=== PATIENT | female | born 1975 | race Caucasian/White ===

== ENCOUNTER 2020-03-12 16:38 | Outpatient (CLI) | payer BC, SELFPAY ==
--- NOTE | ~2020-03-12 | MM_ITS ---
EXAMINATION: MM screening brianda BI w jaiden HISTORY: Screening mammogram TECHNIQUE: Craniocaudal and mediolateral oblique 3-D tomosynthesis images were obtained and synthetic 2-D images were generated. CAD analysis was submitted and interpreted. COMPARISON: No prior mammogram is available for comparison at this institution. BREAST PARENCHYMAL COMPOSITION: The breasts are heterogeneously dense, which may obscure small masses . FINDINGS: At 8 mm circumscribed possible mass is suggested at mid depth in the mid to lower outer rig ht breast (craniocaudal Tomosynthesis image 25/85). A 6 mm circumscribed possible mass is suggested anteriorly in the inner aspect of the upper outer juanpablo drant of the left breast (craniocaudal Tomosynthesis image 56/81). Bilateral diagnostic mammography and bilateral breast ultrasound examination are recommended. IMPRESSION: 1. Possible bilateral breast masses 2. Bilateral diagnostic mammogram and bilateral breast ultrasound examination are recommended. BI-RADS Category 0: Incomplete: Needs additional imaging evaluation. Reviewed, dictated and finalized at location A. IMPRESSION: 1. Possible bilateral breast masses 2. Bilateral diagnostic mammogram and bilateral breast ultrasound examination a re recommended. BI-RADS Category 0: Incomplete: Needs additional imaging evaluation.
== END 2020-03-12 16:39 | disposition home or self-care (01) ==
PROVIDERS: PCP Family Medicine; Visit Provider Obstetrics & Gynecology
DX: Z12.31 Encounter for screening mammogram for malignant neoplasm of breast (principal); R92.8 Other abnormal and inconclusive findings on diagnostic imaging of breast
CPT/HCPCS: 77063; 77067

== ENCOUNTER 2020-03-14 12:31 | Outpatient (CLI) | payer BC, SELFPAY ==
--- NOTE | ~2020-03-14 | MMUS_ITS ---
EXAMINATION: MM diagnostic mammo BI, US breast BI complete HISTORY: Possible bilateral mammographic masses on screening mammogram of 03/12/2020 TECHNIQUE: Additional 3-D tomosynthesis images of both breasts were performed and synthetic 2-D image s were generated. CAD analysis was submitted and interpreted. High resolution complete bilateral elise st ultrasound was performed. COMPARISON: 03/12/2020 bilateral digital screening mammogram FINDINGS: MAMMOGRAPHIC FINDINGS: At least 12 mm circumscribed mass is suggested posteriorly in the mid outer right breast. Heterogeneous dense stroma may obscure small masses on either side. ULTRASOUND: Right breast: 9:00 7 cm from nipple: There is a circumscribed sonolucency measuring 7.7 x 5.4 x 10 mm, with through transmission, consistent with simple cyst Left breast: 12:00 3 cm from nipple: Parallel circumscribed hypoechoic 6.1 x 7.0 x 3.2 mm lesion without internal vascularity or posterior shadowing 2:00 4 cm from nipple: Parallel circumscribed 6.1 x 2.9 x 6.1 mm sonolucency with through transmissio n, likely a small cyst or other benign finding IMPRESSION: 1. No mammographic evidence of malignancy of either breast 2. Routine annual mammographic screening follow-up is recommended. BI-RADS Category 2: Benign finding(s). Reviewed, dictated and finalized at location A. IMPRESSION: 1. No mammographic evidence of malignancy of either breast 2. Routine annual mammographic screening follow-up is recommended. BI-RADS Category 2: Benign finding(s).
== END 2020-03-14 12:32 | disposition home or self-care (01) ==
PROVIDERS: PCP Family Medicine; Visit Provider Obstetrics & Gynecology
DX: R92.8 Other abnormal and inconclusive findings on diagnostic imaging of breast (principal)
CPT/HCPCS: 76641; 77066

== ENCOUNTER 2021-01-07 09:09 | Emergency (ER) | payer BC, SELFPAY ==
--- NOTE | ~2021-01-07 | XR_ITS ---
EXAMINATION: XR foot LT min 3V DATE: 01/07/2021 10:19 INDICATION: Trauma to the left great toe TECHNIQUE: Dorsoplantar, two oblique and lateral views of the left foot were obtained. COMPARISON: None. FINDINGS: Alignment is normal. No fracture. Minimal polyarticular osteoarthritis at the first metatarsophalange al and a few interphalangeal joints. Soft tissue swelling about the distal phalanx of the great toe. IMPRESSION: 1. No acute osseous abnormality. Reviewed, dictated and finalized at location A.
[2021-01-07 09:31] VITALS: BP 156/104; PULSE 77; RESP 16; TEMP 37.1; O2SAT 99
--- NOTE | 2021-01-07 10:02 | ED.FALL ---
HPI - Fall General Chief Complaint: Extremity Injury, Lower Stated Complaint: left 1st digit toe/right arm pain Time Seen by Provider: 01/07/21 09:58 Source: patient and RN notes reviewed Mode of arrival: ambulatory Limitations: no limitations History of Present Illness HPI Narrative: 45-year-old female presents concern for 2 injuries that occurred on the same day. Reports 4 days ago a piece of wood fell on the first digit of her left foot causing pain, swelling, bruising. Reports she wore flip-flops later that day because of the pain in her toe and subsequently tripped falling into a pile of rubble onto her right upper arm. Reports using ice, Aleve. Reports shoulder pain is improved with Aleve, however after a long day of working the shoulder/upper arm becomes more painful with abduction. 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 MD complaint: fall Related Data Home Medications Medication Instructions Recorded Confirmed No Home Medications 01/07/21 01/07/21 Allergies Allergy/AdvReac Type Severity Reaction Status Date / Time amoxicillin Allergy Unknown Verified 01/07/21 09:57 azithromycin Allergy Unknown Verified 01/07/21 09:57 Cephalosporins Allergy Unknown Verified 01/07/21 09:57 codeine Allergy Unknown Verified 01/07/21 09:57 egg Allergy Unknown Verified 01/07/21 09:57 iodine Allergy Unknown Verified 01/07/21 09:57 latex Allergy Unknown Verified 01/07/21 09:57 Macrolide Antibiotics Allergy Unknown Verified 01/07/21 09:57 Penicillins Allergy Unknown Verified 01/07/21 09:57 shellfish derived Allergy Unknown Verified 01/07/21 09:57 Review of Systems Review of Systems: Narrative: CONSTITUTIONAL: Denies malaise, chills, sweats, or fever. CARDIOVASCULAR: Denies chest pain, palpitations, or edema. RESPIRATORY: Denies cough or dyspnea. SKIN: Denies abrasions, lacerations. Reports first digit of left foot toenail is purple MUSCULOSKELETAL: Reports pain to the first digit of left foot, upper right arm. Denies decreased strength, range of motion, sensation. NEUROLOGIC: Denies numbness, weakness, or headache. PSYCHIATRIC: Denies anxiety or depression. All systems reviewed & are unremarkable except as noted in HPI and below PMFSH Family History Family History (Updated 05/29/11 @ 12:41 by DOCTOR UNKNOWN) Other Family history of coronary artery disease Hypertension Social History Social History Alcohol intake: never Gender identity (if verbalized by the patient): Female Comments At time of signature, agree with nursing past medical, surgical, social and family history. There is no relevant family history pertinent to the presenting complaint Exam Narrative: Exam Narrative: GENERAL: Well-appearing, well-nourished, and in no acute distress. HEAD: Normocephalic, atraumatic. EYES: PERRLA, conjunctivae clear NECK: Supple. CHEST: Speaks in full sentences. No respiratory distress. HEART: Regular rate and rhythm. Normal and equal peripheral pulses. EXTREMITIES: First digit of left foot has normal strength and sensation, normal range of motion. Mild edema, ecchymosis. 5/5 strength with digit flexion and extension. Normal sensation with sensitivity to light touch and pain. General digit tenderness. No open wounds, no skin tenting, no devitalized tissue or atrophy, no trophic changes, no obvious deformity, alignment normal, nearby joints and structures intact. Distal pulses palpable and equal bilaterally, skin warm, dry, pink. Capillary refill less than 3 seconds. Right upper extremity has normal strength and sensation, normal range of motion. No edema or ecchymosis. 5/5 strength with shoulder abduction, abduction. Normal sensation with sensitivity to light touch and pain. No point tenderness. No open wounds, no skin tenting, no devitalized tissue or atrophy, no trophic changes, no obvious deformity, alignment normal, nearby joints and structu
== END 2021-01-07 10:45 | disposition home or self-care (01) ==
PROVIDERS: Emergency Provider Nurse Practitioner; PCP General Practice
DX: S90.112A Contusion of left great toe without damage to nail, initial encounter (principal); W20.8XXA Other cause of strike by thrown, projected or falling object, initial encounter; M79.601 Pain in right arm; Z86.16 Personal history of COVID-19
CPT/HCPCS: 11740; 73630; 99213; G0463

== ENCOUNTER 2021-06-13 10:48 | Day surgery (SDC) | payer BC, SELFPAY ==
[2021-06-13 10:24] VITALS: BMI 23.6
--- NOTE | 2021-06-13 11:06 | PM.IMHP ---
H&P: HPI History of Present Illness Date/Time: 06/13/21 11:06 45-year-old female admitted for hysteroscopy dilatation and curettage secondary to heavy bleeding. She underwent ultrasound and there was a thickened area in the fundus with I suspect is probably a polyp. She was scheduled for a later time procedure however she has been bleeding through a pad an hour. Risks and benefits of this procedure reviewed including but not exclusive of , aspiration pneumonia, bleeding, transfusion, perforation injury to bowel, bladder, ureter, or other internal organs with need for open laparotomy. She received the ACOG handout entitled hysteroscopy as well as dilatation and curettage respectively. She had all questions answered. She asked to proceed Chief Complaint: Vaginal bleeding Review of Systems Review of Systems: All systems reviewed & are unremarkable except as noted in HPI and below PMFSH Family History Family History Other Family history of coronary artery disease Hypertension Social History Social History Years smoked: 20 Smoking status: Current some day smoker Tobacco type: cigarettes Alcohol intake: current Alcohol use details: RARE Substance use: never Substance use type: does not use Living arrangements: with family Gender identity (if verbalized by the patient): Female Spiritual care concerns: No Meds Home Medications and Allergies Home Medications Medication Instructions Recorded Confirmed Type albuterol 90 mcg INHALATION Q6H PRN 06/13/21 06/13/21 History amlodipine 5 mg PO DAILY 06/13/21 06/13/21 History bupropion HCl [Wellbutrin XL] 150 mg PO DAILY 06/13/21 06/13/21 History cetirizine 10 mg PO BID 06/13/21 06/13/21 History ferrous sulfate [Iron (ferrous 325 mg PO DAILY 06/13/21 06/13/21 History sulfate)] Allergies Allergy/AdvReac Type Severity Reaction Status Date / Time egg Allergy Severe Anaphylaxis Verified 06/13/21 10:21 iodine Allergy Severe Rash Verified 06/13/21 10:21 amoxicillin Allergy Intermediate Rash Verified 06/13/21 10:21 Cephalosporins Allergy Intermediate Rash Verified 06/13/21 10:21 latex Allergy Intermediate Swelling Verified 06/13/21 10:21 shellfish derived Allergy Intermediate Rash Verified 06/13/21 10:21 Penicillins Allergy Unknown Rash Verified 06/13/21 10:21 codeine AdvReac Mild Nausea and Verified 06/13/21 10:21 Vomiting Exam Const: General: no acute distress Eyes: General: appearance normal, both eyes and all related structures Neck: Neck: supple and no JVD Thyroid: thyroid normal Resp: Effort & Inspection: normal respiratory effort Auscultation: clear to auscultation bilaterally Cardio: Rate: regular rate Rhythm: regular rhythm GI: Inspection: non-distended GI Palp: Yes Soft to palpation, No Tenderness to palpation present (GI) and No Guarding due to palpation present (GI) Auscultation: normal bowel sounds : Speculum Exam - Vagina: normal appearance of the vagina and vaginal bleeding Speculum Exam - Cervix: normal appearance of the cervix and Cervical os closed Bimanual exam- vagina & uterus: enlarged Bimanual Exam- Adnexa, other: normal adnexae Skin: General skin exam: no rashes or lesions noted Extrem: General: normal to inspection and no edema Psych: Mental Status: mental status grossly normal Affect: normal affect Assessment and Plan Additional Plan Impression: Bleeding Plan: Hysteroscopy/dilatation and curettage
--- NOTE | 2021-06-13 11:07 | WPDHPUPDATE1 ---
History and Physical Update Update Date/Time: 06/13/21 11:07 History and Physical has been reviewed, including an updated exam of the patient. There are NO changes in the patient's condition. Risks, benefits, and alternatives have been discussed and questions answered. Patient agrees to proceed with procedure.
[2021-06-13 13:33] VITALS: BP 145/88; PULSE 92; RESP 16; TEMP 37.1; O2SAT 99; BMI 24.5
[2021-06-13] MEDS: ACETAMINOPHEN 500 MG TABLET 1000 MG PO (13:39)
--- NOTE | 2021-06-13 13:42 | WPDANESEPPF ---
Anes - Initial Pre Proc Eval Procedure: Operation Date: 06/13/21 16:30 Proposed Procedures p Hysteroscopy, Dilation and Curettage - Joao Duong MD Date/Time: 06/13/21 13:42 Surgeon: Joao Duong MD Pre Op Diagnosis: irregular bleeding Patient Data Age: 45 Gender: F Height: 1.78 m Weight: 77.5 kg Last Vital Signs Temp 37.1 C 06/13/21 13:33 Pulse 92 06/13/21 13:33 Resp 16 06/13/21 13:33 BP 145/88 H 06/13/21 13:33 Pulse Ox 99 06/13/21 13:33 Allergies Allergy/AdvReac Type Severity Reaction Status Date / Time egg Allergy Severe Anaphylaxis Verified 06/13/21 13:21 iodine Allergy Severe Rash Verified 06/13/21 13:21 amoxicillin Allergy Intermediate Rash Verified 06/13/21 13:21 Cephalosporins Allergy Intermediate Rash Verified 06/13/21 13:21 latex Allergy Intermediate Swelling Verified 06/13/21 13:21 shellfish derived Allergy Intermediate Rash Verified 06/13/21 13:21 Penicillins Allergy Unknown Rash Verified 06/13/21 13:21 codeine AdvReac Mild Nausea and Verified 06/13/21 13:21 Vomiting Home Medications Medication Instructions Recorded Confirmed Type albuterol 90 mcg INHALATION Q6H PRN 06/13/21 06/13/21 History amlodipine 5 mg PO DAILY 06/13/21 06/13/21 History bupropion HCl [Wellbutrin XL] 150 mg PO DAILY 06/13/21 06/13/21 History cetirizine 10 mg PO BID 06/13/21 06/13/21 History ferrous sulfate [Iron (ferrous 325 mg PO DAILY 06/13/21 06/13/21 History sulfate)] hydrocodone-acetaminophen 1 tablet PO Q4H PRN #14 tablet 06/13/21 Rx Patient hx anesthesia problems: none Family hx anesthesia problems: none Results Review: All pre-operative results and documents have been reviewed as part of the pre-operative evaluation. [facility]LY [facility] Past Medical History Medical History Antiphospholipid antibody syndrome Anxiety Asthma Hx of migraines Hypertension Family History Family History Other Family history of coronary artery disease Hypertension Social History Social History Years smoked: 20 Smoking status: Current some day smoker Tobacco type: cigarettes Alcohol intake: current Alcohol use details: RARE Substance use: never Substance use type: does not use Living arrangements: with family Gender identity (if verbalized by the patient): Female Spiritual care concerns: No Anes - Eval Final PreProcedure Day of Procedure 06/13/21 13:42 Patient weight: normal Heart: regular rate and rhythm Lungs: clear to auscultation Airway: Mallampati scale class II Neurological: alert and oriented Last oral intake: >/= 8 hours ASA classification: III Emergent: no Anesthetic plan: proceed Anesthesia type and monitoring: general GIVS and standard monitoring Results Review: All pre-operative results and documents have been reviewed as part of the pre-operative evaluation. Informed Consent: The patient's anesthetic plan and its attendant risks and benefits were discussed with the patient/family/POA. Questions were solicited and answers provided to the satisfaction of the patient/family/POA.
[2021-06-13] MEDS: LACTATED RINGERS 1,000 ML 30 ML IV CONT ×2 (13:48→15:34)
[2021-06-13 13:55] LABS: Hematocrit 29.3 % (37.0-47.0); Hemoglobin 10.2 g/dL (12.0-15.0)
[2021-06-13] MEDS: KETOROLAC 30 MG/ML VIAL (*BKC) IV PUSH (15:17)
--- NOTE | 2021-06-13 15:32 | W.PM.PROC2 ---
Procedure Note - Detailed Date of Procedure 06/13/21 Pre-op Diagnosis irregular bleeding Post-op Diagnosis other (polyp) Procedure Performed Hysteroscopy/polypectomy/dilatation and curettage Surgeon Joao Duong MD Anesthesia MAC and local Indications This is a 45-year-old female with heavy bleeding Findings Several small polyps were seen. Several clots were seen. Each ostia was within normal limits Description of Procedure The patient was prepped and draped in the normal sterile fashion and placed in the dorsal lithotomy position. Under excellent IV be sedation weighted speculum placed in posterior fornix of vagina. The anterior lip of the cervix grasped with a single-tooth tenaculum and 2.5cc of 1% xylocaine anesthesia placed at 2, 4, 8, 10:00 a.m. of the cervix. Uterus sounded to 10cm. Serial dilatation with fragmented dilators performed followed by passage of the 5mm visualizing hysteroscope using normal saline as visualizing medium. S several small polyps were seen and these were individually removed with the polyp forceps piecemeal. The uterus was then scraped over the entire 360? until a good grating sound was heard. When no further tissue could be removed the instruments removed. All sponge, needle, instrument counts were correct. There were no immediate complications Estimated Blood Loss 25 Drains No Packing No Pathology yes Complications No immediate complications Condition stable Disposition PACU
[2021-06-13 15:34] VITALS: BP 127/79; PULSE 84; RESP 16; O2SAT 100
[2021-06-13 16:00] VITALS: BP 140/71; PULSE 88; RESP 16; O2SAT 100
[2021-06-13 16:25] VITALS: BP 137/86; PULSE 70; RESP 14
== END 2021-06-13 16:36 | disposition home or self-care (01) ==
PROVIDERS: Visit Provider Obstetrics & Gynecology
PROC: 0U5B8ZZ Destruction of Endometrium, Via Natural or Artificial Opening Endoscopic (ICD-10-PCS; CPT 58563; principal; 2021-06-13 16:30)
DX: N92.6 Irregular menstruation, unspecified (principal); N84.1 Polyp of cervix uteri; F17.210 Nicotine dependence, cigarettes, uncomplicated; Z79.51 Long term (current) use of inhaled steroids
CPT/HCPCS: 58558; 36415; 85014; 85018; 88305; A9270; J1885; J2250; J2704; J3010; J7120

== ENCOUNTER 2021-06-26 15:44 | Outpatient (CLI) | payer BC, SELFPAY ==
--- NOTE | ~2021-06-26 | MM_ITS ---
EXAMINATION: MM screening brianda BI w jaiden HISTORY: Screening mammogram, family history of breast cancer in her mother. TECHNIQUE: Craniocaudal and mediolateral oblique 3-D tomosynthesis images were obtained and synthetic 2-D images were generated. CAD analysis was submitted and interpreted. COMPARISON: 03/14/2020, 03/12/2020 BREAST PARENCHYMAL COMPOSITION: The breasts are heterogeneously dense, which may obscure small masses . FINDINGS: There is no evidence of suspicious mass, calcification, or architectural distortion to sugg est malignancy in either breast. There has been no suspicious interval change. IMPRESSION: 1. No mammographic evidence of malignancy. 2. Recommend routine screening mammography in one year. BI-RADS Category 1: Negative Reviewed, dictated and finalized at location A.
== END 2021-06-26 15:45 | disposition home or self-care (01) ==
LOC: ANHIMG 15:45
PROVIDERS: Visit Provider Obstetrics & Gynecology
DX: Z12.31 Encounter for screening mammogram for malignant neoplasm of breast (principal)
CPT/HCPCS: 77063; 77067

== ENCOUNTER 2021-11-17 09:37 | Outpatient (CLI) | payer BC, SELFPAY ==
--- NOTE | 2021-11-17 09:45 | ECG_ITS ---
Measurements Intervals [place] Rate: 91 P: 77 SC: 153 QRS: 64 QRSD: 96 T: 45 QT: 312 QTc: 386 Interpretive Statements SINUS RHYTHM POSSIBLE LEFT ATRIAL ENLARGEMENT INCOMPLETE RIGHT BUNDLE BRANCH BLOCK BASELINE ARTIFACT- I, II, III, AVR, AVL, AVF BORDERLINE ECG Electronically Signed On 11-17-2021 12:12:28 NURSING OFFICER by Jalen Pablo D.O.
[2021-11-17 10:48] LABS: Basophils Percent Auto 0.3 % (0.2-1.2); Eosinophils Absolute Auto 0.1 K/mm3 (0-0.3); Eosinophils Percent Auto 1.6 % (0-4.4); Hematocrit 30.8 % (37.0-47.0); Hemoglobin 10.6 g/dL (12.0-15.0); Immature Granulocyte Absolute 0.02 K/mm3 (0.00-0.031); Immature Granulocyte Percent A 0.2 % (0-0.5); Lymphocytes Absolute Auto 2.36 K/mm3 (0.9-3.2); Lymphocytes Percent Auto 26.2 % (18.3-44.2); Mean Corpuscular HGB Conc 34.4 g/dl (32-36); Mean Corpuscular Hemoglobin 31.9 pg (26-34); Mean Corpuscular Volume 92.8 fl (80-100); Monocytes Absolute Auto 0.5 K/mm3 (0.1-0.6); Monocytes Percent Auto 5.9 % (2.6-8.5); Neutrophils Absolute Auto 5.9 K/mm3 (1.3-6.7); Neutrophils Percent Auto 65.8 % (45.5-73.1); Platelet Count Result 330 k/mm3 (150-375); Red Blood Count 3.32 M/mm3 (4.2-5.4); Red Cell Distribution Width 14.5 % (11.5-14.5)
== END 2021-11-17 09:38 | disposition home or self-care (01) ==
LOC: ANHSURGERY 09:42
PROVIDERS: PCP Family Medicine; Visit Provider Obstetrics & Gynecology
DX: R10.2 Pelvic and perineal pain (principal); I10 Essential (primary) hypertension; Z01.818 Encounter for other preprocedural examination; I45.10 Unspecified right bundle-branch block
CPT/HCPCS: 36415; 85025; 86850; 86900; 86901; 93005

== ENCOUNTER 2021-11-21 02:52 | Day surgery (SDC) | payer BC, SELFPAY ==
[2021-11-14 14:33] VITALS: BMI 25.1
--- NOTE | 2021-11-14 14:46 | PC.NURSE ---
Report to the Outpatient Waiting Room, entrance under the green pavilion located off [facility], at time 7:30 on date 11/21/21. OR Time: 9:30. - You and your visitor will be asked a series of questions to screen for COVID 19 for your protection. - A mask is required within the hospital. One visitor will be allowed to accompany the patient into the hospital. Patients visitor will be instructed to remain with patient at all times or leave the building. We will allow the visitor to come back to the postoperative area when patient is ready. Preoperative COVID Testing Requirements: No COVID Test needed if: (proof is required; if not received patient will have Rapid Test prior to entry) - Patient has received COVID Vaccine at least 14 days prior to procedure date or - Patient has positive COVID test result within last 90 days of surgery date. COVID Test needed if above criteria is not met Patients may have clear liquids (water, carbonated beverages, clear teas, apple juice) until 3 hours prior to surgery (6:30) with a maximum of 20 ounces. - No food from midnight until time of surgery Take the following medications with a SIP of water the morning of surgery: AMLODIPINE, WELLBUTRIN, INHALER (IF NEEDED) Medications to discontinue per physician: VITAMINS/SUPPLEMENTS Date to take last dose: 11/17/21 Please no make-up, nail surinamese, hairspray, perfume, deodorant, or body powder the day of surgery. No jewelry (including any body piercings) or valuables the day of surgery, leave them at home. Please take a shower or bath the night before, or the morning of, surgery with an antibacterial soap. Wear comfortable, loose fitting clothing. - Jewelry must be removed prior to entering the operating room. Rings and piercings that are not removed may be cut off. - The hospital will not accept responsibility for valuables. - Please leave all valuables, including medications, at home the day of surgery. If you are going home after surgery, a licensed medical van driver must drive you home. - NO public transportation without another adult. - We recommend that an adult stay with you for 24 hours following discharge. - We also recommend that you do not drive, make important decision, drink alcoholic beverages, or take any drugs that were not prescribed by your health care provider for at least 24 hours after your discharge time. Follow any additional instructions given to you from your surgeon. Telephone instructions given to JOYCE CEJA and asked if any additional questions and then verbalized understanding. Patient advised to call surgeon office or pre surgery nurse liaison [phone] if any additional questions.
--- NOTE | 2021-11-19 07:35 | PM.IMHP ---
H&P: HPI History of Present Illness Date/Time: 11/19/21 07:35 this is a very pleasant 46-year-old female with uterine fibroids and history of excessive heavy bleeding. She has had no success with dilatation curettage or medical treatment. She has pain discomfort and dyspareunia as well. Risks and benefits reviewed including but exclusive of , aspiration pneumonia, bleeding, transfusion, perforation of bowel, bladder, ureters, or other internal organs with the need for open laparotomy and the possibility of a DVT complications. She had all questions answered and asked to proceed Chief Complaint: vaginal bleeding refractory to medical therapy Review of Systems Review of Systems: All systems reviewed & are unremarkable except as noted in HPI and below PMFSH Past Medical History Medical History Antiphospholipid antibody syndrome Anxiety Asthma Hx of migraines Hypertension Family History Family History Other Family history of coronary artery disease Hypertension Social History Social History Smoking packs per day: 0.5 Smoking cigarettes per day: 10.0 Years smoked: 23 Smoking pack-years: 11.50 Smoking status: Former smoker Tobacco type: cigarettes Smoking end date: 10/21/20 Alcohol intake: current Alcohol use details: 1/MONTH Substance use: never Substance use type: does not use Gender identity (if verbalized by the patient): Female Spiritual care concerns: No Meds Home Medications and Allergies Home Medications Medication Instructions Recorded Confirmed Type albuterol 90 mcg INHALATION Q6H PRN 06/13/21 11/14/21 History amlodipine 5 mg PO DAILY 06/13/21 11/14/21 History bupropion HCl [Wellbutrin XL] 150 mg PO DAILY 06/13/21 11/14/21 History cetirizine 10 mg PO DAILY 06/13/21 11/14/21 History ferrous sulfate [Iron (ferrous 325 mg PO DAILY 06/13/21 11/14/21 History sulfate)] Allergies Allergy/AdvReac Type Severity Reaction Status Date / Time egg Allergy Severe Anaphylaxis Verified 11/14/21 14:32 iodine Allergy Severe Rash Verified 11/14/21 14:32 amoxicillin Allergy Intermediate Rash Verified 11/14/21 14:32 Cephalosporins Allergy Intermediate Rash Verified 11/14/21 14:32 latex Allergy Intermediate Swelling Verified 11/14/21 14:32 shellfish derived Allergy Intermediate Rash Verified 11/14/21 14:32 Penicillins Allergy Unknown Rash Verified 11/14/21 14:32 codeine AdvReac Mild Nausea and Verified 11/14/21 14:32 Vomiting Exam Const: General: no acute distress Eyes: General: appearance normal, both eyes and all related structures Neck: Neck: supple and no JVD Thyroid: thyroid normal Resp: Effort & Inspection: normal respiratory effort Auscultation: clear to auscultation bilaterally Cardio: Rate: regular rate Rhythm: regular rhythm GI: Inspection: non-distended GI Palp: Yes Soft to palpation, No Tenderness to palpation present (GI) and No Guarding due to palpation present (GI) Auscultation: normal bowel sounds : External Female Exam: normal external appearance Speculum Exam - Vagina: normal appearance of the vagina and vaginal bleeding Speculum Exam - Cervix: normal appearance of the cervix Bimanual exam- vagina & uterus: enlarged Bimanual Exam- Adnexa, other: No adnexal tenderness Skin: General skin exam: no rashes or lesions noted Extrem: General: normal to inspection and no edema Psych: Mental Status: mental status grossly normal Affect: normal affect Assessment and Plan Additional Plan impression: Excessive heavy bleeding and pelvic pain refractory to medical therapy Plan: Robotic total vaginal hysterectomy and bilateral salpingectomies
[2021-11-21] VITALS (11 sets, daily range): BP systolic 113–140; BP diastolic 63–87; PULSE 68–82; RESP 10–18; TEMP 36.2–37.3; O2SAT 98–100
--- NOTE | 2021-11-21 06:46 | WPDHPUPDATE1 ---
History and Physical Update Update Date/Time: 11/21/21 06:46 History and Physical has been reviewed, including an updated exam of the patient. There are NO changes in the patient's condition. Risks, benefits, and alternatives have been discussed and questions answered. Patient agrees to proceed with procedure.
[2021-11-21] MEDS: ACETAMINOPHEN 500 MG TABLET 1000 MG PO (08:15)
[2021-11-21] MEDS: LACTATED RINGERS 1,000 ML 30 ML IV CONT (08:20)
[2021-11-21] MEDS: KETOROLAC 15 MG/ML VIAL (*BKC) IV PUSH (08:30)
--- NOTE | 2021-11-21 08:53 | WPDANESEPPF ---
Anes - Initial Pre Proc Eval Procedure: Operation Date: 11/21/21 09:30 Proposed Procedures p Robotic Assisted Total Vaginal Hysterectomy with Bilateral Salpingectomy - Joao Duong MD Date/Time: 11/21/21 08:53 Surgeon: Joao Duong MD Pre Op Diagnosis: pelvic pain, excessive bleeding Patient Data Age: 46 Gender: F Height: 1.78 m Weight: 79.9 kg Last Vital Signs Temp 37.3 C 11/21/21 08:28 Pulse 82 11/21/21 08:28 Resp 16 11/21/21 08:28 BP 140/79 11/21/21 08:28 Pulse Ox 99 11/21/21 08:28 Allergies Allergy/AdvReac Type Severity Reaction Status Date / Time egg Allergy Severe Anaphylaxis Verified 11/21/21 08:02 iodine Allergy Severe Rash Verified 11/21/21 08:03 amoxicillin Allergy Intermediate Rash Verified 11/21/21 08:03 Cephalosporins Allergy Intermediate Rash Verified 11/21/21 08:03 latex Allergy Intermediate Swelling Verified 11/21/21 08:03 shellfish derived Allergy Intermediate Rash Verified 11/21/21 08:03 Penicillins Allergy Unknown Rash Verified 11/21/21 08:03 codeine AdvReac Mild Nausea and Verified 11/21/21 08:03 Vomiting Home Medications Medication Instructions Recorded Confirmed Type albuterol 90 mcg INHALATION Q6H PRN 06/13/21 11/14/21 History amlodipine 5 mg PO DAILY 06/13/21 11/21/21 History bupropion HCl [Wellbutrin XL] 150 mg PO DAILY 06/13/21 11/21/21 History cetirizine 10 mg PO DAILY 06/13/21 11/14/21 History ferrous sulfate [Iron (ferrous 325 mg PO DAILY 06/13/21 11/21/21 History sulfate)] Patient hx anesthesia problems: none Family hx anesthesia problems: none Results Review: All pre-operative results and documents have been reviewed as part of the pre-operative evaluation. [facility] Past Medical History Medical History Antiphospholipid antibody syndrome Anxiety Asthma Hx of migraines Hypertension Family History Family History Other Family history of coronary artery disease Hypertension Social History Social History Smoking packs per day: 0.5 Smoking cigarettes per day: 10.0 Years smoked: 20 Smoking pack-years: 10.00 Smoking status: Current some day smoker Tobacco type: cigarettes Smoking end date: 10/21/20 Alcohol intake: current Alcohol use details: RARE Substance use: never Substance use type: does not use Living arrangements: with family Gender identity (if verbalized by the patient): Female Spiritual care concerns: No Anes - Eval Final PreProcedure Day of Procedure 11/21/21 08:53 Patient weight: normal Heart: regular rate and rhythm Lungs: clear to auscultation Airway: Mallampati scale class II Neurological: alert and oriented Last oral intake: >/= 8 hours ASA classification: III Emergent: no Anesthetic plan: proceed Anesthesia type and monitoring: general ETT and standard monitoring Results Review: All pre-operative results and documents have been reviewed as part of the pre-operative evaluation. Informed Consent: The patient's anesthetic plan and its attendant risks and benefits were discussed with the patient/family/POA. Questions were solicited and answers provided to the satisfaction of the patient/family/POA.
[2021-11-21] MEDS: CLINDAMYCIN PHOS IVPB (09:12)
[2021-11-21] MEDS: DEXTROSE 5% IVPB (09:12)
[2021-11-21] MEDS: WATER IVPB (09:12)
[2021-11-21] MEDS: SCOPOLAMINE 1.5 MG PATCH TRANSDERM (09:15)
[2021-11-21] MEDS: GENTAMICIN SULFATE INJ 395 MG in DEXTROSE 5% 100 ML 100 MG IVPB (09:29)
--- NOTE | 2021-11-21 10:31 | W.PM.PROC2 ---
Procedure Note - Detailed Date of Procedure 11/21/21 Pre-op Diagnosis pelvic pain, excessive bleeding Post-op Diagnosis Same Procedure Performed Robotic total vaginal hysterectomy bilateral salpingectomy Surgeon Joao Duong MD Anesthesia General Indications This 46-year-old female with fibroids and bleeding refractory to medical therapy Findings Enlarged uterus. Therefore amount of adhesions anteriorly from the omentum to the anterior abdominal wall which brought down easily. Normal-appearing ovaries bilaterally. Tubes were status post tubal ligation. Description of Procedure The patient was prepped draped in the normal sterile fashion placed in the dorsal lithotomy position. Under excellent general endotracheal anesthesia weighted speculum placed in posterior fornix vagina. Anterior lip of the cervix grasped with a single-tooth tenaculum and the uterus sounded to 11cm. Serial dilatation with fragmented dilators performed followed by passage of the 10. MONICA and the 3. Cold cup. Next the 16 Uzbek catheter was placed in the bladder draining clear urine. The weighted speculum and were thus removed. Gloves were changed A supraumbilical incision made the Veress needle passed in the abdomen. Abdomen filled with CO2 gas [id number]. The 8mm trocar advanced in the abdomen the downside visualized with no injury seen. Patient was placed in Trendelenburg and left and right lateral quadrant incisions made. 8mm trocars were then advanced under direct visualization assuring no injury. A right upper quadrant incision made the 8mm trocar advanced under direct visualization assuring no injury. Robot was docked Attention was turned to the outreach counselor. Large amount of adhesions were seen anteriorly to the uterus and these were sharply dissected till uterus could be visualized. The uterus was large irregular consistent with uterine. The tubes were status post tubal ligation. The left fallopian tube was then dissected off the ovary and passed off through the right upper quadrant incision. The right fallopian tube was grasped and was able to be capped attached to the uterine segment. The left round ligament was grasped, burned, cut. Anteriorly a bladder flap was formed by sharply dissecting layer by layer the bladder and and reflecting it caudally. There was a fair amount of adhesions from the previous section. This was brought to the opposite round ligament after the bladder was able to be successfully clamping burning and cutting the round ligament. Next the left utero-ovarian ligament was skeletonized to conserve left ovary and tube clamped, burned, cut brought to the of previously cut ligament. In like fashion conserving the right ovary the utero-ovarian ligament was clamped, burned, cut and brought to the level of previously cut ligament. Next the cardinal broad ligaments on the left were skeletonized tugging the cervix laterally clamping burning cutting until the large tortuous blood vessels left could be seen. These were individually clamped,. Like fashion cardinal broad ligaments right were serially skeletonized clamped burned cut brought down lateral edge of the cervix and uterus until the uterine vessels could be seen on the right these were individually clamped,, cut. Blanching the uterus was noted at that point excellent hemostasis noted. A colpotomy incision made in the cervix uterus and fallopian tubes removed through the vagina. Blood loss estimated 25cc and the vagina closed with continuous running 0V lock from lateral edge to lateral edge back to the midline. Irrigation undertaken until clear an the raw surface area was sprinkled with [place] term. Blood loss estimated 25cc. The robot was undocked. The gas removed from the abdomen. The trocars removed and the incisions closed with 4-0 Monocryl and glue. The patient was awakened and went to recovery in satisfactory condition. All sponge, needle, instrument counts were correct. There
[2021-11-21] MEDS: fentaNYL CITRATE INJ (*CRX) 100 MCG/2 ML VIAL 25 MCG IV PUSH ×4 (10:52→11:26)
--- NOTE | 2021-11-21 11:47 | PC.NURSE ---
This patient, Elicia Metcalf, was received from PACU per bed to room 289. Patient/family oriented to unit policies and routines
[2021-11-21] MEDS: DEXTROSE 5%/LACTATED RINGERS 1,000 ML 125 ML IV CONT (12:04)
[2021-11-21] MEDS: HYDROcodone/acetaminophen (*CRX) 5-325 MG TABLET 1 TAB PO ×2 (13:05→17:15)
[2021-11-21] MEDS: IBUPROFEN 600 MG TABLET PO ×2 (17:16→22:56)
[2021-11-22 04:14] VITALS: BP 120/67; PULSE 71; RESP 18; TEMP 37.2
[2021-11-22] MEDS: IBUPROFEN 600 MG TABLET PO ×2 (04:35→11:05)
[2021-11-22] MEDS: HYDROcodone/acetaminophen (*CRX) 5-325 MG TABLET 1 TAB PO ×2 (04:36→11:05)
[2021-11-22 05:31] LABS: Basophils Percent Auto 0.2 % (0.2-1.2); Eosinophils Percent Auto 0.2 % (0-4.4); Hematocrit 30.3 % (37.0-47.0); Immature Granulocyte Absolute 0.11 K/mm3 (0.00-0.031); Immature Granulocyte Percent A 0.6 % (0-0.5); Lymphocytes Absolute Auto 1.84 K/mm3 (0.9-3.2); Lymphocytes Percent Auto 9.7 % (18.3-44.2); Mean Corpuscular Hemoglobin 32.1 pg (26-34); Mean Corpuscular Volume 97.1 fl (80-100); Mean Platelet Volume 10.4 fl (7.4-10.4); Monocytes Percent Auto 5.1 % (2.6-8.5); Neutrophils Absolute Auto 15.9 K/mm3 (1.3-6.7); Neutrophils Percent Auto 84.2 % (45.5-73.1); Platelet Count Result 202 k/mm3 (150-375); Red Blood Count 3.12 M/mm3 (4.2-5.4); Red Cell Distribution Width 13.8 % (11.5-14.5); White Blood Count 18.9 K/mm3 (4.5-10.0)
[2021-11-22 08:20] VITALS: BP 112/72; PULSE 80; RESP 16; TEMP 36.8
[2021-11-22] MEDS: ENOXAPARIN 40 MG/0.4 ML SYRINGE SUB-Q (08:21)
--- NOTE | 2021-11-22 08:21 | WPDANESPN ---
Anes - Prog Note Post-Op Date/Time: 11/22/21 08:21 Cardiovascular status: normal Respiratory status: normal Airway patency: baseline Mental status: baseline Post-Op hydration status: normal Vital Signs: Last Vital Signs Temp 98.2 F 11/22/21 08:20 Pulse 80 11/22/21 08:20 Resp 16 11/22/21 08:20 BP 112/72 11/22/21 08:20 Pulse Ox 100 11/21/21 11:43 Pain Score (VAS): 0 I/O: Intake & Output 11/21/21 11/22/21 11/22/21 23:59 07:59 15:59 Intake Total 2190 1000 Output Total 3300 1500 Balance -1110 -500 Laboratory Tests 11/22/21 04:46 11/22/21 04:46 WBC 18.9 H RBC 3.12 L Hgb 10.0 L Hct 30.3 L MCV 97.1 MCH 32.1 MCHC 33.0 RDW 13.8 Plt Count 202 MPV 10.4 Immature Gran % (Auto) 0.6 H Neut % (Auto) 84.2 H Lymph % (Auto) 9.7 L [place] % (Auto) 5.1 Eos % (Auto) 0.2 Baso % (Auto) 0.2 Lymph # (Auto) 1.84 [place] # (Auto) 1.0 H Eos # (Auto) 0.0 Baso # (Auto) 0.0 Abs Immat Gran (auto) 0.11 H Absolute Neuts (auto) 15.9 H Absolute Nucleated RBC 0.0 Nucleated RBC % 0.0 Patient Feedback: Patient satisfied with anesthetic care.
--- NOTE | 2021-11-22 11:34 | PM.GYNPNOP ---
RESIDENCE LIFE COORDINATOR - A/P Postoperative Procedures: Procedures Operation Date: 11/21/21 09:30 Actual Procedure Side Surgeon p Robotic Assisted Total Vaginal Hysterectomy with Bilateral Salpingectomy Bilateral Joao Duong MD A: POD#1, doing well. P: Home to f/u 2 weeks. Time Spent With Patient Time with patient: less than 15 minutes RESIDENCE LIFE COORDINATOR- PN:Subj Post-Op Subjective Date/time seen: 11/22/21 11:34 Interval history: Pain OK. Tolerating diet. Voiding. Would like to go home. Exam Narrative: AVSS I/O OK ABD soft, nontender. Incisions c/d/i. EXT nontender RESIDENCE LIFE COORDINATOR - PN: Obj Data Vital Signs Vital Signs: Vital Signs - 24 hr 11/21/21 11:43 11/21/21 15:15 11/21/21 19:26 Temperature 36.7 C 37.1 C Pulse Rate 75 82 76 Respiratory Rate 12 18 18 Blood Pressure 123/76 135/87 126/78 Pulse Oximetry 100 11/21/21 23:00 11/22/21 04:14 11/22/21 08:20 Temperature 36.6 C 37.2 C 36.8 C Pulse Rate 72 71 80 Respiratory Rate 16 18 16 Blood Pressure 120/77 120/67 112/72 Pulse Oximetry Intake/Output Intake/Output: Intake & Output 11/19/21 11/20/21 11/21/21 11/22/21 23:59 23:59 23:59 23:59 Intake Total 3705.875 1000 Output Total 3300 1500 Balance 405.875 -500 Meds/Results Medications: Active Medications Generic Name Dose Route Start Last Admin Trade Name Freq PRN Reason Stop Dose Admin Hydrocodone Bitart/Acetaminophen 1 tab 11/21/21 11:46 11/22/21 11:05 Hydrocodone/Acetaminophen (*Crx) 5-325 Mg Tablet PO 1 tab Q3H PRN Administration Pain Rated 5 or Less Hydrocodone Bitart/Acetaminophen 1 tab 11/21/21 11:46 Hydrocodone/Acetaminophen (*Crx) 10-325 Mg Tablet PO Q3H PRN Pain Rated 6 or Greater Enoxaparin Sodium 40 mg 11/22/21 09:00 11/22/21 08:21 Enoxaparin 40 Mg/0.4 Ml Syringe SUB-Q 40 mg DAILY DINORA Administration Ibuprofen 600 mg 11/21/21 11:46 11/22/21 11:05 Ibuprofen 600 Mg Tablet PO 600 mg Q6H PRN Administration Cramping Ketorolac Tromethamine 30 mg 11/21/21 11:46 Ketorolac 30 Mg/Ml Vial (*Bkc) IV PUSH 11/26/21 11:45 Q6H PRN Pain Rated 4-6 Naloxone HCl 0.1 mg 11/21/21 11:46 Naloxone Hcl 0.4 Mg/Ml Vial IV PUSH Q2M PRN Respiratory rate less than 10 Ondansetron HCl 4 mg 11/21/21 11:46 Ondansetron Inj 4 Mg/2 Ml Vial IV PUSH Q6H PRN Nausea And Vomiting Simethicone 80 mg 11/21/21 11:46 Simethicone 80 Mg Tab.Chew PO Q2H PRN Gas Labs CBC & Chem 7: 11/22/21 04:46 Labs: Laboratory Results - last 24 hr 11/22/21 04:46 WBC 18.9 H RBC 3.12 L Hgb 10.0 L Hct 30.3 L MCV 97.1 MCH 32.1 MCHC 33.0 RDW 13.8 Plt Count 202 MPV 10.4 Immature Gran % (Auto) 0.6 H Neut % (Auto) 84.2 H Lymph % (Auto) 9.7 L [place] % (Auto) 5.1 Eos % (Auto) 0.2 Baso % (Auto) 0.2 Lymph # (Auto) 1.84 [place] # (Auto) 1.0 H Eos # (Auto) 0.0 Baso # (Auto) 0.0 Abs Immat Gran (auto) 0.11 H Absolute Neuts (auto) 15.9 H Absolute Nucleated RBC 0.0 Nucleated RBC % 0.0
--- NOTE | 2021-11-24 07:06 | PM.DS ---
DS: Admitting Diagnosis Discharge Date 11/22/21 Admitting Diagnosis Bleeding refractory to medical therapy and uterine fibroids DS: Summary Hospital Course Hospital Course: Patient was admitted for robotic total vaginal hysterectomy bilateral salpingectomy. The procedure was uncomplicated. Please see the operative report for full details. Her hospital course unremarkable. She remained afebrile. She was up, voiding without difficulty, ambulating, generally without complaints. Time Spent with Patient Time attestation: Total time spent providing and/or coordinating discharge services: Exam Const: General: no acute distress Eyes: General: appearance normal, both eyes and all related structures Neck: Neck: supple and no JVD Thyroid: thyroid normal Resp: Effort & Inspection: normal respiratory effort Auscultation: clear to auscultation bilaterally Cardio: Rate: regular rate Rhythm: regular rhythm GI: Inspection: non-distended GI Palp: Yes Soft to palpation, No Tenderness to palpation present (GI) and No Guarding due to palpation present (GI) Auscultation: normal bowel sounds : General: Yes bladder normal to palpation External Female Exam: normal external appearance Speculum Exam - Vagina: normal vaginal discharge and No vaginal bleeding Speculum Exam - Cervix: nontender Bimanual exam- vagina & uterus: bladder normal to palpation and No Cervical tenderness present OB/external & speculum: No vaginal bleeding Skin: General skin exam: no rashes or lesions noted Extrem: General: normal to inspection and no edema Psych: Mental Status: mental status grossly normal Affect: normal affect DS: Data Data Completed and Pending Pending studies at discharge: Pending at discharge 11/21/21 09:47 Surgical [PTH] Routine Discharge Plan Discharge Patient Disposition: Home, Self-Care Discharge Instructions: Remove the Scopolamine patch that was placed behind your left ear in 72 hours or less. Wash your hands after touching. Some Complications to Watch for: ? Excessive incisional or vaginal drainage (more than one pad an hour). Additional Instructions: ? Expect some vaginal spotting for 2-4 days. ? Nothing vaginally (i.e. douching, intercourse, tampons) until follow up visit. Skin Adhesive Care Skin adhesive is medical glue used to close wounds. It is a substitute for salazar and stitches. Skin adhesive wound closures take less time and do not require anesthesia. You have less pain and a lower risk of infection than with salazar or stitches. Skin adhesive will fall off after the wound is healed. Discharge instructions: Keep wound clean and dry. You can shower 24 hours after adhesive is applied but do not soak in bath or hot tub until wound is healed or provider approves. Do not pick or scrub your wound or the adhesive. This can make your wound reopen. ?Do not apply ointments to your wound. These include antibiotic or other ointments that would contain petroleum jelly. These products will remove skin adhesive and reopen the wound. Contact your provider if you have a fever, your wound is red and warm to touch or have questions about your condition or care. Seek care immediately if your wound is draining fluid or open. Patient Instructions: Laparoscopic Hysterectomy (DC) Stand Alone Forms: General Discharge Instructions Follow-up/Referrals: Joao Duong MD [Physician] - Discharge Medications: New hydrocodone-acetaminophen 5-325 mg tablet 1 - 2 tablet PO Q6H PRN (Reason: pain) Qty: 30 RF: 0 Continued cetirizine 10 mg Tablet 10 mg PO DAILY RF: 0 amlodipine 5 mg Tablet 5 mg PO DAILY RF: 0 ferrous sulfate [Iron (ferrous sulfate)] 325 mg (65 mg iron) Tablet 325 mg PO DAILY RF: 0 albuterol 90 mcg/actuation Aerosol 90 mcg INHALATION Q6H PRN (Reason: Allergic Reaction) RF: 0 bupropion HCl [Wellbutrin XL] 150 mg Tablet Extended Release 24 Hr 150 mg PO DAILY RF: 0
== END 2021-11-22 11:56 | disposition home or self-care (01) ==
LOC: ANHSURGERY 07:27 → ANHOB2 11:51
PROVIDERS: PCP Family Medicine; Visit Provider Obstetrics & Gynecology
PROC: (CPT 58552; principal; 2021-11-21 09:30)
DX: R10.2 Pelvic and perineal pain (principal); N80.0 Endometriosis of uterus; N92.4 Excessive bleeding in the premenopausal period; N73.6 Female pelvic peritoneal adhesions (postinfective); F41.9 Anxiety disorder, unspecified; J45.909 Unspecified asthma, uncomplicated; I10 Essential (primary) hypertension; D68.61 Antiphospholipid syndrome; Z87.891 Personal history of nicotine dependence; Z79.51 Long term (current) use of inhaled steroids
CPT/HCPCS: 58552; S2900; 36415; 85025; 88307; 99199; A9270; J1100; J1580; J1650; J1885; J2250; J2270; J2405; J2704; J2710; J3010; J7030; J7120; J7121

== ENCOUNTER 2022-01-14 21:17 | Emergency (ER) | payer BC, SELFPAY ==
[2022-01-14 21:21] VITALS: BP 152/84; PULSE 84; RESP 16; TEMP 36.8; O2SAT 99
[2022-01-14 23:15] VITALS: BP 140/74; PULSE 80; RESP 14; O2SAT 97
[2022-01-14 23:16] LABS: Basophils Percent Auto 0.3 % (0.2-1.2); Eosinophils Absolute Auto 0.4 K/mm3 (0-0.3); Eosinophils Percent Auto 2.9 % (0-4.4); Hematocrit 33.3 % (37.0-47.0); Hemoglobin 10.7 g/dL (12.0-15.0); Immature Granulocyte Absolute 0.03 K/mm3 (0.00-0.031); Immature Granulocyte Percent A 0.2 % (0-0.5); Lymphocytes Absolute Auto 3.55 K/mm3 (0.9-3.2); Lymphocytes Percent Auto 28.5 % (18.3-44.2); Mean Corpuscular HGB Conc 32.1 g/dl (32-36); Mean Corpuscular Hemoglobin 30.5 pg (26-34); Mean Corpuscular Volume 94.9 fl (80-100); Mean Platelet Volume 9.5 fl (7.4-10.4); Neutrophils Absolute Auto 7.5 K/mm3 (1.3-6.7); Neutrophils Percent Auto 60.1 % (45.5-73.1); Platelet Count Result 371 k/mm3 (150-375); Red Blood Count 3.51 M/mm3 (4.2-5.4); Red Cell Distribution Width 12.9 % (11.5-14.5); White Blood Count 12.5 K/mm3 (4.5-10.0)
[2022-01-14 23:26] LABS: Anion Gap 4 mmol/L (8-16); Blood Urea Nitrogen 12 mg/dL (7-17); Calcium 8.7 mg/dL (8.4-10.2); Carbon Dioxide 28 mmol/L (22-30); Chloride 103 mmol/L (98-107); Estimated CRCL calculation 79 ml/min; Estimated Glomerular Filt Rate > 60; Glucose 103 mg/dL (65-110); Potassium 3.6 mmol/L (3.4-5.0); Sodium 135 mmol/L (137-145)
[2022-01-14 23:28] LABS: Prothrombin Time 12.3 Seconds (11.1-14.7)
[2022-01-14 23:31] LABS: D Dimer 0.56 ug/mL (<0.48)
--- NOTE | 2022-01-14 23:57 | ED.GENADULT ---
HPI - General Adult General Chief complaint: Extremity Problem,Nontraumatic Stated complaint: horace flank pain right leg pain Time Seen by Provider: 01/14/22 22:57 Source: patient and family Mode of arrival: ambulatory Limitations: no limitations History of Present Illness HPI narrative: 46-year-old with a history of antiphospholipid syndrome, migraine headaches here with complaints of redness around the right eye noticed after taking shower while she was wiping herself. She denies any trauma. No history of fever or chills. She denies any insect bite. Onset (ago): hour(s) (2) Location: right and lower extremity Radiation: non-radiation Severity: mild Pain Consistency: constant Relieving factors: none Exacerbating factors: none Associated symptoms: denies other symptoms Related Data Home Medications Medication Instructions Recorded Confirmed albuterol 90 mcg INHALATION Q6H PRN 06/13/21 11/14/21 amlodipine 5 mg PO DAILY 06/13/21 11/21/21 bupropion HCl [Wellbutrin XL] 150 mg PO DAILY 06/13/21 11/21/21 cetirizine 10 mg PO DAILY 06/13/21 11/14/21 ferrous sulfate [Iron (ferrous 325 mg PO DAILY 06/13/21 11/21/21 sulfate)] Allergies Allergy/AdvReac Type Severity Reaction Status Date / Time egg Allergy Severe Anaphylaxis Verified 01/14/22 23:17 iodine Allergy Severe Rash Verified 01/14/22 23:17 amoxicillin Allergy Intermediate Rash Verified 01/14/22 23:17 Cephalosporins Allergy Intermediate Rash Verified 01/14/22 23:17 latex Allergy Intermediate Swelling Verified 01/14/22 23:17 shellfish derived Allergy Intermediate Rash Verified 01/14/22 23:17 Penicillins Allergy Unknown Rash Verified 01/14/22 23:17 Review of Systems Review of Systems: All systems reviewed & are unremarkable except as noted in HPI and below Constitutional: Constitutional: Reports no additional constitutional complaints Eyes: Eyes: Reports no additional eye complaints ENT: Reports system reviewed and no additional complaints, except as documented Cardiovascular: Cardiovascular: Reports no additional cardiovascular complaints Respiratory: Respiratory: Reports no additional respiratory complaints Gastrointestinal: Gastrointestinal: Reports no additional gastrointestinal complaints Musculoskeletal: Musculoskeletal: Reports no additional musculoskeletal complaints Integumentary/Breasts: Skin/Breast: Reports as per HPI Neurologic: Reports system reviewed and no additional complaints, except as documented PMFSH Past Medical History Medical History Antiphospholipid antibody syndrome Anxiety Asthma Hx of migraines Hypertension Family History Family History Other Family history of coronary artery disease Hypertension Social History Social History Smoking packs per day: 0.5 Smoking cigarettes per day: 10.0 Years smoked: 20 Smoking pack-years: 10.00 Smoking status: Current some day smoker Alcohol intake: current Alcohol use details: RARE Substance use: never Substance use type: does not use Gender identity (if verbalized by the patient): Female Spiritual care concerns: No Exam Narrative: GENERAL: Well-appearing, well-nourished, and in no acute distress. HEAD: Normocephalic, atraumatic. EYES: PERRLA and EOMI. NECK: Supple. CHEST: Clear to auscultation. No respiratory distress. HEART: Regular rate and rhythm. No murmur heard. Normal peripheral pulses. ABDOMEN: Soft, nontender, nondistended, normal active bowel sounds. EXTREMITIES: Normal range of motion. No edema. Examination of the right thigh shows a small area of erythema around the medial aspect radiating into the posterior aspect of the thigh mild tenderness no bite enamorado noted mild warmth on palpaton SKIN: Warm, dry, no rash. NEURO: No focal deficits. Alert and oriented x3. PSYCH: Normal mood and a
[2022-01-15 00:25] VITALS: BP 147/102; PULSE 75; RESP 16; O2SAT 96
== END 2022-01-15 00:25 | disposition home or self-care (01) ==
PROVIDERS: Emergency Provider Family Medicine; PCP Family Medicine
DX: L03.115 Cellulitis of right lower limb (principal); D68.61 Antiphospholipid syndrome; J45.909 Unspecified asthma, uncomplicated; I10 Essential (primary) hypertension; F41.9 Anxiety disorder, unspecified; F17.210 Nicotine dependence, cigarettes, uncomplicated
CPT/HCPCS: 36415; 80048; 85025; 85380; 85610; 99283

== ENCOUNTER 2024-07-04 10:49 | Emergency (ER) | payer BC, SELFPAY ==
[2024-07-04 10:58] VITALS: BP 146/94; PULSE 107; RESP 18; TEMP 37; O2SAT 97
--- NOTE | 2024-07-04 11:08 | ED.ASTHMA ---
HPI - Asthma General Chief Complaint: Asthma Stated Complaint: SOB Source: patient, RN notes reviewed and old records reviewed Mode of arrival: ambulatory Limitations: no limitations History of Present Illness HPI Narrative: Patient with history of asthma presents today with complaints of exacerbation. She reports that symptoms began a few days ago after being at a [employer]. She reports that she has had increased wheezing, has been having to use albuterol more often than prescribed to control her symptoms. She reports that any time her symptoms reach this point, she has responded well to steroids in the past. She is speaking in full sentences, no tripoding. No respiratory distress. Elevated blood pressure and pulse rate noted, likely secondary to her excessive use of albuterol Related Data Home Medications Medication Instructions Recorded Confirmed albuterol 90 mcg/actuation aerosol 90 mcg inhalation Q6H PRN Allergic 06/13/21 07/04/24 inhaler Reaction amlodipine 5 mg tablet 5 mg PO DAILY 06/13/21 07/04/24 bupropion HCl 150 mg 24 hr tablet, 150 mg PO DAILY 06/13/21 07/04/24 extended release (Wellbutrin XL) cetirizine 10 mg tablet 10 mg PO DAILY 06/13/21 07/04/24 ferrous sulfate 325 mg (65 mg 325 mg PO DAILY 06/13/21 07/04/24 iron) tablet (Iron (ferrous sulfate)) Allergies Allergy/AdvReac Type Severity Reaction Status Date / Time egg Allergy Severe Anaphylaxis Verified 07/04/24 10:56 iodine Allergy Severe Rash Verified 07/04/24 10:56 amoxicillin Allergy Intermediate Rash Verified 07/04/24 10:56 Cephalosporins Allergy Intermediate Rash Verified 07/04/24 10:56 latex Allergy Intermediate Swelling Verified 07/04/24 10:56 shellfish derived Allergy Intermediate Rash Verified 07/04/24 10:56 Penicillins Allergy Unknown Rash Verified 07/04/24 10:56 Review of Systems Review of Systems: All systems reviewed & are unremarkable except as noted in HPI and below Constitutional: Constitutional: Reports no additional constitutional complaints ENT: Reports system reviewed and no additional complaints, except as documented Cardiovascular: Cardiovascular: Reports as per HPI and Reports no additional cardiovascular complaints Respiratory: Respiratory: Reports as per HPI, Reports no additional respiratory complaints, Reports cough and Reports wheezing Gastrointestinal: Gastrointestinal: Reports no additional gastrointestinal complaints PMFSH Past Medical History Medical History Antiphospholipid antibody syndrome Anxiety Asthma Hx of migraines Hypertension Family History Family History Other Family history of coronary artery disease Hypertension Social History Social History Smoking packs per day: 0.5 Smoking cigarettes per day: 10.0 Years smoked: 20 Smoking pack-years: 10.00 Smoking status: Current some day smoker Alcohol intake: current Alcohol use details: 1/MONTH Substance use: never Substance use type: does not use Living arrangements: with family Gender identity (if verbalized by the patient): Female Spiritual care concerns: No Comments At the time of my signature, I reviewed and agree with the nursing past medical, surgical, social, and family history. There is no relevant family history pertinent to the patient complaint. Exam Const: General: cooperative, no acute distress, alert and awake Orientation/consciousness: oriented to person, oriented to place and oriented to time HENMT: Head: normal to inspection Mouth: Yes moist mucous membranes Resp: Effort & Inspection: normal respiratory effort and able to speak in complete sentences Auscultation: no crackles, no rales, no rhonchi and wheezes (Mild) expiratory wheezes Cardio: Palpation: normal PMI Rate: regular rate Rhythm: regular rhythm Heart sounds: S1 normal he
[2024-07-04] MEDS: predniSONE 20 MG TABLET 60 MG PO (11:16)
[2024-07-04] MEDS: IPRATROPIUM 0.5 MG/ALBUTEROL SULFATE 2.5 MG AMPUL.NEB 3 ML INHALATION (11:18)
== END 2024-07-04 11:34 | disposition home or self-care (01) ==
PROVIDERS: Emergency Provider Nurse Practitioner Family; PCP Family Medicine
DX: J45.909 Unspecified asthma, uncomplicated (principal); F17.210 Nicotine dependence, cigarettes, uncomplicated; F41.9 Anxiety disorder, unspecified; I10 Essential (primary) hypertension; D68.61 Antiphospholipid syndrome
CPT/HCPCS: 94640; 99213; G0463; J7512